=== PATIENT | male | born 1985 | race Hispanic/Latino ===

== ENCOUNTER 2025-01-07 15:55 | Emergency (ER) | payer BC, SELFPAY ==
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
[2025-01-07 17:43] VITALS: BP 135/89; TEMP 98.2; O2SAT 99
== END 2025-01-07 17:32 | disposition home or self-care (01) ==
LOC: ER 15:55
DX: F41.9 Anxiety disorder, unspecified (principal)
CPT/HCPCS: 99282